=== PATIENT | female | born 1965 | race Caucasian/White ===

== ENCOUNTER → 2018-03-29 | Outpatient (CLI) | payer OTHER ==
[~2018-03-29] MED LIST: SINCALIDE 5 MCG INJ ZFS
== END | disposition home or self-care (01) ==
LOC: NUC 10:56
DX: R10.13 Epigastric pain (principal)
CPT/HCPCS: 78227

== ENCOUNTER 2019-01-16 12:23 | Day surgery (SDC) | payer OTHER ==
[2019-01-16] MEDS ORDERED: LIDOCAINE 4% SOLUTION 50 ML BTL (14:21)
[2019-01-16] MEDS ORDERED: FENTAnyl 50 MCG/ML VIAL (14:54)
[2019-01-16] MEDS ORDERED: MIDAZOLAM 1 MG/ML 2 ML INJ ×2 (14:54→14:55)
== END 2019-01-16 15:00 | disposition home or self-care (01) ==
LOC: GIL 12:23
DX: K29.50 Unspecified chronic gastritis without bleeding (principal); K20.9 Esophagitis, unspecified; I10 Essential (primary) hypertension
CPT/HCPCS: 43239; 88305; 88312